=== PATIENT | female | born 1960 | race Caucasian/White ===

== ENCOUNTER 2021-01-01 23:14 | Emergency (ER) | payer OTHER ==
[~2021-01-01] VITALS: Ht 167.6 cm; Wt 93.5 kg
[2021-01-01] MEDS ORDERED: VENLAFAXINE HCL75 M1 PO (23:44)
[2021-01-01] MEDS ORDERED: MELOXICAM15 MG PO (23:44)
[2021-01-02] MEDS ORDERED: PROTONIX40 MG PO (01:25)
--- NOTE | 2021-01-02 13:42 | EKG ---
[facility] [address], [place] [address] Signed Sinus bradycardia Otherwise normal ECG No previous ECGs available Confirmed by ANTWAN SOUTH MD ([id number]) on 01/02/2021 1:41:59 PM Electronically Signed By: ANTWAN SOUTH MD 01/02/21 1342 PATIENT NAME: ARIN LE Electrocardiogram DATE OF : 62 PHYSICIAN: ANTWAN SOUTH MD REPORT #: [id number] REPORT IS CONFIDENTIAL AND NOT TO BE RELEASED WITHOUT AUTHORIZATION
== END 2021-01-02 01:40 | disposition home or self-care (01) ==
LOC: ED 23:14
DX: K30 Functional dyspepsia (principal); Z88.5 Allergy status to narcotic agent; Z79.899 Other long term (current) drug therapy
CPT/HCPCS: 71045; 80053; 81001; 83690; 83735; 85025; 93005; 93010; 99284-25

== ENCOUNTER 2024-12-24 07:20 | Day surgery (SDC) | payer BC ==
[~2024-12-24] VITALS: Ht 167.6 cm; Wt 93.0 kg
--- NOTE | ~2024-12-24 | OR ---
[facility] [address] [place], [place] [address] Draft DATE OF OPERATION: 12/24/2024 SURGEON: Lynda Bermudez DO PREOPERATIVE DIAGNOSIS: Colon cancer screening. POSTOPERATIVE DIAGNOSIS: Nonspecific colitis. PROCEDURE PERFORMED: Colonoscopy. ANESTHESIA: IV sedation. ESTIMATED BLOOD LOSS: None. DRAINS: None. COMPLICATIONS: None. DESCRIPTION OF PROCEDURE: The patient was brought to the GI lab and placed in supine position. After induction of IV sedation, the patient was then placed in left lateral position and padded to the satisfaction of anesthesia. The Olympus video colonoscope was then introduced into the rectum and while insufflating under direct visualization, the scope was advanced through the rectosigmoid, sigmoid colon, descending colon, transverse colon, ascending colon to the cecum. The colon was then insufflated, and exploration of the mucosal surface was carried out. The cecum and ascending colon had no intrinsic or extrinsic masses were appreciated. Scope was pulled back past the hepatic flexure, transverse colon, some minimal nonspecific colitis was noted, but no other intrinsic or extrinsic mass was noted. Scope was brought back past the splenic flexure to the descending colon. No intrinsic or extrinsic masses were noted. Some nonspecific colitis was noted as well. Scope was brought back into the sigmoid colon. No intrinsic or extrinsic masses were appreciated, but some nonspecific colitis was present as well in the sigmoid and rectosigmoid colon. The colon was decompressed. Scope was withdrawn. The patient PATIENT NAME: ARIN LE OPERATIVE REPORT DATE OF : 62 REPORT #: [id number] PHYSICIAN: LYNDA BERMUDEZ DO PCP: LAMAR ROMERO PAC REPORT IS CONFIDENTIAL AND NOT TO BE RELEASED WITHOUT AUTHORIZATION [address] [place] [address] Draft tolerated the procedure well and to recovery room in satisfactory condition. DO AVILA [place]/SANDRO /[id number] Copies: ~ PATIENT NAME: ARIN LE OPERATIVE REPORT DATE OF : 62 REPORT #: [id number] PHYSICIAN: LYNDA BERMUDEZ DO PCP: LAMAR ROMERO PAC REPORT IS CONFIDENTIAL AND NOT TO BE RELEASED WITHOUT AUTHORIZATION
[~2024-12-24 07:20] MED LIST: CEFAZOLIN SODIUM 2 GM in SODIUM CHLORIDE 0.9% 100 ML IV SCH; IBLOOD GLUCOSE TEST STRIP 1 EA TEST VI PRN; LACTATED RINGER'S 1,000 ML IV SCH; LIDOCAINE HCL 1% 5 ML SDV INJ ONE; MELOXICAM15 MG PO; PROTONIX40 MG PO; SCOPOLAMINE 1 MG/3 DAYS PATCH 1 EACH TDSY TD SCH; VENLAFAXINE HCL75 M1 PO
[2024-12-24] MEDS ORDERED: LIDOCAINE HCL 2% 5 ML SDV ONE (07:22)
[2024-12-24 07:31] VITALS: BP 125/77
[2024-12-24] MEDS ORDERED: VITAMIN B COMP1 EACH PO (07:33)
[2024-12-24] MEDS ORDERED: VITAMIN D310 MC2 (07:34)
--- NOTE | 2024-12-24 09:36 | NUR ---
12/24/24 0936 Nora Parisi 0923-PATIENT ARRIVED TO PACU ON 2L NC RR EVEN PATIENT LAYING LEFT LATERAL REACTIVE TO VERBAL STIMULI ORIENTED TO PACU VERY DROWSY CLOSES EYES. ABDOMEN SOFT. IVF INFUSING. SR HR 70'S.
[2024-12-24 10:28] VITALS: BP 138/90
== END 2024-12-24 10:30 | disposition home or self-care (01) ==
LOC: DS 07:20
PROVIDERS: ATTEND Surgery
PROC: 0DJD8ZZ Inspection of Lower Intestinal Tract, Via Natural or Artificial Opening Endoscopic (ICD-10-PCS; principal; 2024-12-24 08:40)
DX: Z12.11 Encounter for screening for malignant neoplasm of colon (principal); K52.9 Noninfective gastroenteritis and colitis, unspecified; Z86.0109 Personal history of other colon polyps; Z80.0 Family history of malignant neoplasm of digestive organs; Z79.899 Other long term (current) drug therapy; Z88.5 Allergy status to narcotic agent
CPT/HCPCS: 00811; J0688; J2003; J2704; J7121